=== PATIENT | female | born 1975 ===

== ENCOUNTER 2016-11-24 09:41 | Emergency (ER) | payer BC, OTHER ==
[2016-11-24 10:46] VITALS: BMI 27.4
[2016-11-24 10:53] LABS: BASO % 0.5 % (0.0-2.0); EOS # 0.1 K/uL (0.0-0.7); EOS % 1.5 % (0.0-4.0); HEMATOCRIT 38.6 % (34.0-47.0); LYMPH % 13.1 % (20.0-40.0); MEAN CELL VOLUME 90.6 fl (81.0-99.0); MEAN CORPUSCULAR HEMOGLOBIN 31.2 pg (27.0-31.0); MEAN CORPUSCULAR HGB CONC 34.4 g/dL (33.0-37.0); MEAN PLATELET VOLUME 9.6 fl (7.2-11.7); MONO # 0.5 K/uL (0.0-0.8); MONO % 6.8 % (0.0-10.0); NEUT # 5.8 K/uL (1.8-7.0); NEUT % 78.1 % (50.0-75.0); NRBC % 0.1 % (0.0-0.0); RED CELL DISTRIBUTION WIDTH 14.1 % (11.5-14.5); WHITE BLOOD COUNT 7.4 K/uL (4.8-10.8)
[2016-11-24 15:31] VITALS: BP 113/83; PULSE 105
--- NOTE | 2016-11-24 19:21 | OBHP ---
Datetime: 11/24/2016 19:14 IP Adm Impression: Term, intrauterine ; No Active Labor; Intact Membranes IP Admit Plan: Observation/Evaluation; Discharge home Admit Comment, IP Provider: 41-year-old 002 at 38 weeks 5 days gestational age presented to OB ED complaining of a small amount of blood in stool. Patient denies any vaginal bleeding, leakage of fluids, contractions. Patient reports good movement. Patient reports that she had a slight amou nt of blood in bowel movement this morning. Patient without bleeding since that initial episode. Sarita ent denies any lightheadedness, dizziness, syncope, shortness of breath, chest pain. Past medical history none Past surgical history 2 Medications vitamins No known drug allergies Obstetrical history full-term 2 Social history no tobacco, drugs, no alcohol Physical exam: Refer to physical exam findings Assessment: 41-year-old 0-2 at 30 weeks 5 days gestational age. No evidence of labor at this time. No ev idence of any bleeding at this time. Patient's CBC normal and no laboratory or clinical evidence of a nemia. Maternal well-being and well-being reassuring at this time. Plan: Patient scheduled for repeat in 2 days. Patient given labor precautions. Patient dischar ged home. Pelvic Type - PN: Adequate Extremities - PN: Normal Abdomen - PN: Normal Back - PN: Normal Breast - PN: Normal Lungs - PN: Normal Heart - PN: Normal Thyroid - PN: Normal Neurologic - PN: Normal HEENT - PN: Normal General - PN: Normal FHR - Baseline A Provider: 130s-140s Contraction Comments Provider: none Comments, ACOG Physical Exam: Cervix long, closed, posterior No blood, fluid, discharge IP Hx Assessment: The History has been Reviewed and is Current EGA AdmitDate IP: 38.6 Vital Signs Provider: Reviewed; Within Normal Limits IP Chief Complaint: Other NICHD Variability Prov Fetus A: Moderate 6-25bpm NICHD Accel Fetus A IP Provider: 15X15 FHR Category Provider Fetus A: Category I NICHD Decel Fetus A IP Provider: None Dilatation, Provider: 0 Effacement, Provider: 0 Station, Provider: -4 Genitourinary Exam: Normal DTRs - PN: Normal
== END 2016-11-24 11:10 | disposition home or self-care (01) ==
LOC: H.EROB2 09:41
DX: O47.1 False labor at or after 37 completed weeks of gestation (principal); Z3A.38 38 weeks gestation of pregnancy

== ENCOUNTER 2016-11-25 00:43 | Inpatient (IN) | payer BC, OTHER ==
[2016-11-25 01:17] VITALS: BMI 32.4
--- NOTE | 2016-11-25 01:53 | OBADHP ---
Datetime: 11/25/2016 01:00 Admit Comment, IP Provider: 41yo IUP at 38+w c/o leaking from vagina. Occ pain. No VB. 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 Pt ate full meal 10pm ... will section at 6am unl ess in active labor or other indication Condition explained to pt with plan for section in AM, risks/complications...she understood. Her questions were answered. Pelvic Type - PN: Adequate Extremities - PN: Normal Abdomen - PN: Normal Back - PN: Normal Breast - PN: Not Done Lungs - PN: Normal Heart - PN: Normal Thyroid - PN: Normal Neurologic - PN: Normal HEENT - PN: Normal General - PN: Normal Presentation-Admit: Vertex Amniotic Fluid Color, Provider: Clear Membranes, Provider: Ruptured Contraction Comments Provider: one noted Comments, ACOG Physical Exam: ROS: General: no weakness; no fatigue HEENT: no GIBBONS; no visual dist CV: no palpitations; no no CP GI: no N/V no diarhea No epigastric pain; non radiating : no F/U/D MS: No joint pain Exam bese Pool Provider: Positive IP Hx Assessment: The History has been Reviewed and is Current Vital Signs Provider: Reviewed Vital Signs Provider Details: Elevated BP IP Chief Complaint: Suspected ruptured membranes NICHD Variability Prov Fetus A: Moderate 6-25bpm NICHD Accel Fetus A IP Provider: 15X15 FHR Category Provider Fetus A: Category I NICHD Decel Fetus A IP Provider: None Dilatation, Provider: 0 Genitourinary Exam: Normal DTRs - PN: Normal EGA AdmitDate IP: 39.0 IP Adm Impression: Term, intrauterine ; No Active Labor; Ruptured Membranes IP Admit Plan: Admit to unit; Initiate Section protocol Datetime: 11/24/2016 19:14 FHR - Baseline A Provider: 130s-140s Effacement, Provider: 0 Station, Provider: -4
[2016-11-25 02:45] LABS: BASO # 0.1 K/uL (0.0-0.2); BASO % 0.7 % (0.0-2.0); EOS # 0.1 K/uL (0.0-0.7); EOS % 1.2 % (0.0-4.0); HEMATOCRIT 36.3 % (34.0-47.0); LYMPH # 1.1 K/uL (1.0-4.3); LYMPH % 14.5 % (20.0-40.0); MEAN CELL VOLUME 90.3 fl (81.0-99.0); MEAN CORPUSCULAR HEMOGLOBIN 31.7 pg (27.0-31.0); MEAN CORPUSCULAR HGB CONC 35.1 g/dL (33.0-37.0); MONO # 0.6 K/uL (0.0-0.8); MONO % 8.3 % (0.0-10.0); NEUT # 5.7 K/uL (1.8-7.0); NEUT % 75.3 % (50.0-75.0); WHITE BLOOD COUNT 7.6 K/uL (4.8-10.8)
[2016-11-25 03:32] LABS: BLOOD UREA NITROGEN 17 mg/dl (7-17); CARBON DIOXIDE 18 mmol/L (22-30); CHLORIDE 109 mmol/L (98-107); GFR AFRICAN-AMERICAN > 60; GLUCOSE,RANDOM 95 mg/dL (65-105); POTASSIUM 3.9 MMOL/L (3.6-5.0); SODIUM 135 mmol/l (132-148)
[2016-11-25 03:33] LABS: ALB/GLOB RATIO 1.1 (1.0-2.1); ALKALINE PHOSPHATASE 134 U/L (38-126); ALT/SGPT 30 U/L (9-52); AST/SGOT 26 U/L (14-36); BILIRUBIN,TOTAL 0.2 mg/dl (0.2-1.3); CALCIUM 9.5 mg/dL (8.4-10.2); URIC ACID 5.8 mg/Dl (2.2-7.5)
[2016-11-25 03:49] VITALS: O2SAT 98
[2016-11-25] MEDS: Lactated Ringer's 1,000 ML IV SCH ×2 (04:40→05:35)
[2016-11-25] MEDS ORDERED: Oxytocin 30 units/LR 500ML 30 U/500 ML BAG IV ONE ×2 (04:48→06:37)
[2016-11-25] MEDS ORDERED: ceFAZolin 2 GM in Sodium Chloride 0.9% 100 ML IVPB ONE (05:45)
[2016-11-25] MEDS ORDERED: Morphine 1 mg/ml preservative-free Inj(Duramorph) ONE (05:54)
[2016-11-25] MEDS ORDERED: Dexamethasone 4 mg/1 ml ONE (05:55)
[2016-11-25] MEDS ORDERED: ePHEDrine 50 mg/ml Inj ONE (05:57)
[2016-11-25 06:05] LABS: RBC URINE 59 /hpf (0-3); URINE BILIRUBIN NEGATIVE (NEGATIVE); URINE BLOOD MODERATE (NEGATIVE); URINE COLOR YELLOW (YELLOW); URINE GLUCOSE (UA) NEG (Normal); URINE KETONE NEGATIVE (NEGATIVE); URINE LEUKOCYTE ESTERASE NEG Leu/uL (Negative); URINE PROTEIN 100 mg/dL (NEGATIVE); URINE UROBILINOGEN 0.2-1.0 mg/dL (0.2-1.0); WBC URINE 8 /hpf (0-5)
[2016-11-25] MEDS ORDERED: Morphine 1 mg/ml preservative-free Inj(Duramorph) IT ONE (06:15)
[2016-11-25] MEDS ORDERED: Absorbable Gelatin Sponge Size 12-7 ONE ×2 (06:50→06:51)
[2016-11-25] MEDS ORDERED: Oxycodone/Acetaminophen 5/325 mg Tab PO PRN (07:33)
[2016-11-25] MEDS ORDERED: Trimethobenzamide 200 mg/2 mL Inj IM ONE (08:36)
[2016-11-25] MEDS ORDERED: DiphenhydrAMINE 50 mg/ml Inj IVP PRN (10:04)
[2016-11-25] MEDS: Simethicone 80 mg Chewtab PO SCH ×2 (16:19→22:08)
[2016-11-26] MEDS: Simethicone 80 mg Chewtab PO SCH ×4 (04:57→21:09)
[2016-11-26 07:18] LABS: BASO % 0.2 % (0.0-2.0); EOS % 0.5 % (0.0-4.0); LYMPH % 10.9 % (20.0-40.0); MEAN CELL VOLUME 91.1 fl (81.0-99.0); MEAN CORPUSCULAR HEMOGLOBIN 31.2 pg (27.0-31.0); MEAN CORPUSCULAR HGB CONC 34.2 g/dL (33.0-37.0); MEAN PLATELET VOLUME 9.9 fl (7.2-11.7); MONO # 0.5 K/uL (0.0-0.8); NEUT # 8.1 K/uL (1.8-7.0); NEUT % 83.4 % (50.0-75.0); RED CELL DISTRIBUTION WIDTH 13.9 % (11.5-14.5); WHITE BLOOD COUNT 9.7 K/uL (4.8-10.8)
--- NOTE | 2016-11-26 09:34 | OBPPN ---
Datetime: 11/26/2016 09:31 PP Pain Prov: Within normal limits PP Nausea Prov: Denies PP Flatus Prov: Yes PP BM Prov: No PP Breasts Prov: Normal PP Heart Prov: Normal PP Lungs Prov: Normal PP Abdomen/Uterus Prov: Normal PP Lochia Prov: Normal PP Vulva/Perineum Prov: Normal PP CVA Tenderness Prov: Normal PP Extremities Prov: Normal PP C/S Incision Prov: Normal PP Progress Prov: Normal PP Impression Prov: Normal progression PP Plan Prov: Continue present management PP Progress Note Prov: She feels some incisional pain. Ambulating well; tolerating diet H/H A: S/P C/S day 1 P: cont postop care Vital Signs Provider PP: Reviewed; Within Normal Limits
[2016-11-27] MEDS: Simethicone 80 mg Chewtab PO SCH ×3 (04:26→16:25)
--- NOTE | 2016-11-27 08:32 | OP ---
PROCEDURE DATE: 11/25/2016 PREOPERATIVE DIAGNOSES: Intrauterine at 38 plus weeks' gestation, previous section x2, declining vaginal after section and early labor. POSTOPERATIVE DIAGNOSES: Intrauterine at 38 plus weeks gestation, previous section x2, declining vaginal after section and early labor. PROCEDURE: Repeat low transverse section via previous Pfannenstiel incision. SURGEON: Dr. Jourdan Gaines. WORD PROCESSING OPERATOR: Sohail Rico MD (Dr. Svetlana Rico is a board certified [employer] physician, who was available to come in to assist in delivering her private patient. There was no resident available for this case. Her presence was vital and necessary and she was present for the time of incision to the delivery of the infant to the closure of the skin). ANESTHESIOLOGIST: Dr. Marroquin. ANESTHESIA: Spinal. OPERATIVE FINDINGS: Live delivered from cephalic presentation, score 9 and 9 given at 1 and 5 minutes respectively. There was clear amniotic fluid noted. Placenta was delivered intact manually. The uterus was not exteriorized secondary to adhesions. Ovaries and fallopian tubes appeared to be within normal limits grossly. ESTIMATED BLOOD LOSS: 800 mL. All equipments, sponge, and needles accounted for. She remained hemodynamically stable and was transferred to the recovery room in stable condition. DESCRIPTION OF PROCEDURE: The patient was brought to the operating room, placed in supine position after successful spinal anesthesia. She was placed in supine position. Compression boots were placed on both lower extremities, a Little catheter was placed and noted to be draining clear urine. She was then draped and prepped in the usual sterile manner. Once adequate anesthesia was obtained, a Pfannenstiel incision was made through the previous surgical scar. This incision was then taken down to underlying fascia. Once the fascia was nicked in the midline, a bulge was noted, this appeared to be preperitoneal bladder. Careful dissection was done to extend the fascial incision bilaterally using electrocautery and Gary scissors. Careful separation was done inferiorly by grasping the fascia and blunt dissection was done to separate peritoneum, fascia as well as from the rectus muscle. This was done only bluntly because of the location. Superiorly, both blunt and sharp dissection was done with careful visualization of this area. This was done superiorly with both blunt dissection and Gary scissors. A clear area was noted superiorly and noted to be peritoneal layer. Two Daniela clamps were used to tent up the peritoneum and then incised using Metzenbaum scissors. We were able to identify the edge of the bladder and careful dissection was done superiorly to stay away from the bladder and visualizing the intestines at the same time. A bladder blade was then inserted. Metzenbaum scissors was used to create a bladder flap by incising peritoneum above the bladder line and then extending bilaterally. Bladder blade was then inserted behind the bladder flap. A low transverse incision was made using the scalpel. Upon entering the uterus, clear amniotic fluid was noted. The incision was then extended bilaterally using Band-Aid scissors. The was then delivered as atraumatically as possible. First, the head was delivered and was bulb suctioned nasopharyngeally. The remainder of the infant was then delivered as atraumatically as possible. The infant was crying spontaneously. Cord was clamped and cut. The infant was handed to the gutter installer in attendance. Uterus was left in place secondary to some adhesions. Good contracted uterus noted. Uterus was cleared of debris and clots. Careful identification was done of the bladder, bladder flap as well as the lower uterine segment. Lower uterine segment was grasped using two Allis clamps. Uterus was then closed, single layered closure, using 0 Vicryl suture in interlocking fashion. Hemostasis was assured. We were able to identify both ovaries and fallopian tubes, appeared to be within normal limits. Irrigation was performed. Peritoneum was then approximated using 0 Vicryl suture. Rectus muscle was noted to have good hemostasis. There was some diastasis noted, but we were able to separate the fascia on the lower aspect from the bladder flap and identified the edge of the fascial layer. Thereafter, the fascial layer was then closed using 0 Vicryl suture in running fashion. Irrigation was performed. Subcuticular layer was then approximated using 2-0 plain suture x3. Hemostasis assured. 3-0 Vicryl suture was used to approximate the skin. Dermabond, Steri-Strips, pressure bandage were applied. She tolerated the procedure well and was transferred to the recovery room in stable condition. All equipments, sponge, and needles accounted for. Jourdan Gaines DO
--- NOTE | 2016-11-27 09:04 | OBPPN ---
Datetime: 11/27/2016 09:02 PP Pain Prov: Within normal limits PP Nausea Prov: Denies PP Flatus Prov: Yes PP Breasts Prov: Normal PP Heart Prov: Normal PP Lungs Prov: Normal PP Abdomen/Uterus Prov: Normal PP Lochia Prov: Normal PP Vulva/Perineum Prov: Normal PP CVA Tenderness Prov: Normal PP Extremities Prov: Normal PP C/S Incision Prov: Normal PP Impression Prov: Normal progression PP Plan Prov: Discharge PP Progress Note Prov: The patient is doing well no complaints. Well-controlled ambulating toleratin g diet and voiding without difficulty Vital signs stable afebrile Uterus firm below the umbilicus Incision clean dry and intact Postoperative day #2 Patient desires to go home Prescription for Motrin Percocet and Colace provided Follow-up with Dr. Cabral in 1 week Vital Signs Provider PP: Reviewed
--- NOTE | 2016-11-27 09:08 | OBDCSUM ---
Datetime: 11/24/2016 11:10 Discharge Instructions, Provider: Routine instructions given Discharge Diagnosis, Provider: Term Delivered Contraception discussed, Prov: Yes Disch Activity Restrictions: No sexual activity; Nothing in vagina - Salt[place], tampons, douche Discharge Comment, Provider: Doing well desires early discharge Contraception after Delivery: Undecided
[2016-11-27 23:28] VITALS: BP 118/83; PULSE 72; RESP 20; TEMP 98
== END 2016-11-27 19:15 | disposition home or self-care (01) | DRG 766 ==
LOC: H.EROB2 00:43 → H.L&D 01:18 → H.OB/GYN 16:08
PROVIDERS: ADMIT Obstetrics & Gynecology; ATTEND Obstetrics & Gynecology
PROC: 10D00Z1 Extraction of Products of Conception, Low, Open Approach (ICD-10-PCS; principal; 2016-11-25)
PROC: 4A1HXCZ Monitoring of Products of Conception, Cardiac Rate, External Approach (ICD-10-PCS; 2016-11-25)
DX: O34.211 Maternal care for low transverse scar from previous cesarean delivery (principal); O09.523 Supervision of elderly multigravida, third trimester; R03.0 Elevated blood-pressure reading, without diagnosis of hypertension; Z37.0 Single live birth; Z3A.38 38 weeks gestation of pregnancy